=== PATIENT | female | born 1990 | race Caucasian/White ===

== ENCOUNTER 2016-09-07 22:15 | Emergency (ER) | payer MEDICAID ==
[~2016-09-07] VITALS: Ht 165.1 cm; Wt 80.0 kg
[~2016-09-07 22:15] MED LIST: DOXY100C PO; NEOM0.1S4 EACH EYE; OXYC15TA PO; ZANA4CAP PO
[2016-09-07 22:17] VITALS: BP 126/90; PULSE 104; RESP 14; TEMP 98.3; O2SAT 100
[2016-09-07 22:30] VITALS: O2SAT 100
[2016-09-07] MEDS ORDERED: SODIUM CHLOR 0.9% 1000 ML INJ 1,000 ML IV ONE (23:30)
[2016-09-07] MEDS ORDERED: CLINDAMYCIN INJ 900 MG in SODIUM CHLORIDE 0.9% INJ 100 ML IV ONE (23:30)
[2016-09-07] MEDS ORDERED: KETOROLAC TROMETHAMINE 30 MG/ML (IVP) VIAL IV PUSH ONE (23:30)
[2016-09-07 23:50] LABS: AUTOMATED NEUTROPHIL # 3.2 TH/MM3 (1.8-7.7); BASOPHIL # 0.1 TH/MM3 (0-0.2); EOSINOPHIL # 0.3 TH/MM3 (0-0.4); EOSINOPHIL % 6.9 % (0.0-4.0); HEMATOCRIT 40.8 % (35.0-46.0); HEMO FLAGS DIFF FINAL; LYMPH % 18.3 % (9.0-44.0); LYMPHOCYTE # 0.9 TH/MM3 (1.0-4.8); MEAN CORPUSCULAR HEMOGLOBIN 26.4 PG (27.0-34.0); MONO % 10.5 % (0.0-8.0); NEUT % 63.3 % (16.0-70.0); PLATELET COUNT 151 TH/MM3 (150-450); RED BLOOD COUNT 5.11 MIL/MM3 (4.00-5.30); RED CELL DISTRIBUTION WIDTH 12.3 % (11.6-17.2)
[2016-09-07 23:57] LABS: POTASSIUM 4.2 MEQ/L (3.5-5.1)
[2016-09-08 00:01] LABS: BICARBONATE 28.9 MEQ/L (21.0-32.0)
[2016-09-08 00:03] LABS: BARBITURATES, URINE NEG (NEG); COCAINE, URINE POS (NEG)
[2016-09-08 00:04] LABS: AMPHETAMINE, URINE NEG (NEG)
[2016-09-08 00:37] VITALS: BP 122/84; PULSE 96; RESP 16; O2SAT 100
[2016-09-08] MEDS ORDERED: CLIN1CAP5 PO (01:09)
[2016-09-08] MEDS ORDERED: BACT800T5 PO (01:09)
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
[2016-09-08] MEDS ORDERED: SULFAMETHOXAZOLE-TRIMETHOPRIM DS 800-160 MG TAB PO ONE (01:15)
[2016-09-08 01:41] VITALS: BP 118/78; PULSE 78; RESP 18; O2SAT 100
== END 2016-09-08 01:43 | disposition home or self-care (01) ==
LOC: PHED 22:15
DX: L03.113 Cellulitis of right upper limb (principal); B95.61 Methicillin susceptible Staphylococcus aureus infection as the cause of diseases classified elsewhere; F19.10 Other psychoactive substance abuse, uncomplicated
CPT/HCPCS: 80048; 80307; 84703; 85025; 86403; 87040; 87070; 87186; 87205; 96365; 96375; 99284; J1885; J7030

== ENCOUNTER 2016-12-29 19:24 | Emergency (ER) | payer SELFPAY ==
[~2016-12-29] VITALS: Ht 165.1 cm; Wt 80.0 kg
[~2016-12-29 19:24] MED LIST changes: +BACT800T5 PO; +CLIN150C14 PO; -DOXY100C PO; -NEOM0.1S4 EACH EYE
[2016-12-29 19:26] VITALS: BP 111/77; PULSE 99; RESP 16; TEMP 98.7; O2SAT 97
[2016-12-29] MEDS ORDERED: SODIUM CHLOR 0.9% 1000 ML INJ 1,000 ML IV SCH (19:54)
[2016-12-29] MEDS ORDERED: SODIUM CHLORIDE 0.9% FLUSH 10 ML FLUSH IVF PRN (20:00)
[2016-12-29] MEDS ORDERED: VANCOMYCIN INJ 1,000 MG in SODIUM CHLOR 0.9% 250 ML INJ 250 ML IV ONE (20:00)
[2016-12-29] MEDS ORDERED: TETANUS/DIPHTHERIA TOXOID ADULT 0.5 ML VIAL IM ONE (20:15)
--- NOTE | 2016-12-29 20:15 | PD ---
HPI Chief Complaint: Skin Problem Time Seen by Provider: 19:50 Travel History International Travel<30 days: No Contact w/Intl Traveler<30days: No Traveled to known affect area: No History of Present Illness HPI Patient is a 26-year-old female who is an IV drug abuser, presents to emergency room for evaluation of right antecubital abscess. Patient reports that she last used IV heroin a few days ago, reports that over the past few days, she has had increased swelling and pain to her right AC. Reports concern for abscess. Patient reports that she has been having fever/chills. Reports that tetanus is not up to date. PFSH Past Medical History Medical History: Denies Significant Hx Diminished Hearing: No Immunizations Current: Yes ?: Not LMP: 12/11/16 : 2 Para: 2 Dilation and Curettage (D&C): Yes Past Surgical History Oral Surgery: Yes (WISDOM TEETH REMOVED) Other Surgery: Yes Social History Alcohol Use: No Tobacco Use: No Substance Use: Yes (iv drug use HEROIN LAST USED OVER TWO WEEKS AGO) Allergies-Medications (Allergen,Severity, Reaction): Coded Allergies: Influenza Virus Vaccines (Unverified Allergy, Severe, Anaphylaxis, 12/29/16 ) ciprofloxacin (Unverified Allergy, Intermediate, RASH, 12/29/16) Reported Meds & Prescriptions Reported Meds & Active Scripts Active Clindamycin (Clindamycin HCl) 150 Mg Cap 300 Mg PO Q6H 7 Days Bactrim DS (Sulfamethoxazole-Trimethoprim) 800-160 Mg Tab 1 Tab PO BID Reported Oxycodone (Oxycodone HCl) 15 Mg Tab 15 Mg PO Q6H PRN Zanaflex (Tizanidine HCl) 4 Mg Cap 4 Mg PO TID Review of Systems Except as stated in HPI: all other systems reviewed are Neg General / Constitutional: Positive: Fever, Chills Eyes: No: Visual changes HENT: No: Headaches Cardiovascular: No: Chest Pain or Discomfort Respiratory: No: Shortness of Breath Gastrointestinal: No: Abdominal Pain Genitourinary: No: Dysuria Musculoskeletal: Positive: Edema, Pain (edema and pain to right AC) Skin: No Rash Neurologic: No: Weakness Psychiatric: No: Depression Endocrine: No: Polydipsia Hematologic/Lymphatic: No: Easy Bruising Physical Exam Narrative GENERAL: mild distress SKIN: Focused skin assessment warm/dry. HEAD: Atraumatic. Normocephalic. EYES: Pupils equal and round. No scleral icterus. No injection or drainage. ENT: No nasal bleeding or discharge. Mucous membranes pink and moist. NECK: Trachea midline. No JVD. CARDIOVASCULAR: Regular rate and rhythm. No murmur appreciated. RESPIRATORY: No accessory muscle use. Clear to auscultation. Breath sounds equal bilaterally. GASTROINTESTINAL: Abdomen soft, non-tender, nondistended. Hepatic and splenic margins not palpable. MUSCULOSKELETAL: No obvious deformities. No clubbing. No cyanosis. Patient with 3dat3ee abscess to right AC, pulses intact, neurovascularly intact. NEUROLOGICAL: Awake and alert. No obvious cranial nerve deficits. Motor grossly within normal limits. Normal speech. PSYCHIATRIC: Appropriate mood and affect; insight and judgment normal. Data Data Last Documented VS Vital Signs Date Time Temp Pulse Resp B/P (MAP) Pulse Ox O2 Delivery O2 Flow Rate FiO2 12/29/16 23:06 99 Room Air 12/29/16 19:26 98.7 99 16 Orders Orders Basic Metabolic Panel (Bmp) (12/29/16 19:54) Complete Blood Count With Diff (12/29/16 19:54) Blood Culture (12/29/16 19:54) Ecg Monitoring (12/29/16 19:54) Iv Access Insert/Monitor (12/29/16 19:54) Oximetry (12/29/16 19:54) Sodium Chlor 0.9% 1000 Ml Inj (Ns 1000 M (12/29/16 19:54) Sodium Chloride 0.9% Flush (Ns Flush) (12/29/16 20:00) Vancomycin Inj (Vancomycin Inj) (12/29/16 20:00) Ed Urine Pregnancytest Poc (12/29/16 19:54) Drug Screen, Random Urine (12/29/16 19:54) Elbow, Limited (Ap&Lat) (12/29/16 ) Us Arm Soft Tissue (12/29/16 ) Tetanus/Diphtheria Tox Adult (Tetanus/Di (12/29/16 20:15) Prothrombin Time / Inr (Pt) (12/29/16 21:22) Act Partial Throm Time (Ptt) (12/29/16 21:22) Labs Laboratory Tests Test 12/29/16 20:30 12/29/16 22:37 12/29/16 22:55 White Blood Count 6.7 TH/MM3 Red Blood Count 5.23 MIL/MM3 Hemoglobin 13.9 GM/DL Hematocrit 41.7 % Mean Corpuscular Volume 79.8 FL Mean Corpuscular Hemoglobin 26.6 PG Mean Corpuscular Hemoglobin Concent 33.4 % Red Cell Distribution Width 16.3 % Platelet Count 189 TH/MM3 Mean Platelet Volume 9.6 FL Neutrophils (%) (Auto) 42.3 % Lymphocytes (%) (Auto) 49.3 % Monocytes (%) (Auto) 7.6 % Eosinophils (%) (Auto) 0.3 % Basophils (%) (Auto) 0.5 % Neutrophils # (Auto) 2.8 TH/MM3 Lymphocytes # (Auto) 3.3 TH/MM3 Monocytes # (Auto) 0.5 TH/MM3 Eosinophils # (Auto) 0.0 TH/MM3 Basophils # (Auto) 0.0 TH/MM3 CBC Comment AUTO DIFF Differential Comment AUTO DIFF CONFIRMED Toxic Granulation 1+ Platelet Estimate LOW Platelet Morphology Comment NORMAL Red Cell Morphology Comment NORMAL Blood Urea Nitrogen 11 MG/DL Creatinine 1.21 MG/DL Random Glucose 90 MG/DL Calcium Level 8.7 MG/DL Sodium Level 136 MEQ/L Potassium Level 4.7 MEQ/L Chloride Level 103 MEQ/L Carbon Dioxide Level 26.6 MEQ/L Anion Gap 6 MEQ/L Estimat Glomerular Filtration Rate 53 ML/MIN MDM Medical Decision Making Medical Screen Exam Complete: Yes Emergency Medical Condition: Yes Medical Record Reviewed: Yes Interpretation(s) Vital Signs Date Time Temp Pulse Resp B/P (MAP) Pulse Ox O2 Delivery O2 Flow Rate FiO2 12/29/16 19:26 98.7 99 16 111/77 (88) 97 Room Air Differential Diagnosis Abscess versus hematoma Narrative Course During the course of the patients emergency department visit, the patients history, examination, and differential diagnosis were reviewed with the patient. The patient was placed on a tripe scraper with oximetry and frequent blood pressure monitoring. The patient had 20 gauge IV access obtained and blood work sent for analysis. The patient was initially provided IV Vancomycin as well as tetanus update The patients laboratory studies were reviewed and remarkable for CBC & BMP Diagram 12/29/16 20:30 Calcium Level 8.7 Radiology studies were reviewed and remarkable for Last Impressions Upper Extremity Ultrasound 12/29/16 0000 Signed Impressions: Service Date/Time: December 20:57 - CONCLUSION: Complex hypoechoic mass which could represent an abscess or hematoma. Onel Hector MD Elbow X-Ray 12/29/16 0000 Signed Impressions: Service Date/Time: December 20:12 - CONCLUSION: Negative limited 2 view exam. Onel Hector MD Patient with abscess versus hematoma to her right antecubital region. Patient received IV vanco while in the ER. I discussed with patient need for admission to the hospital for IV antibiotics. Patient refuses admission to the hospital and would like to first try oral antibiotics as well as warm compresses to the area. Patient reports "I have to be somewhere in the morning, I cant stay." Signs and symptoms of when to return to the ER was reviewed with patient in detail. Diagnosis Primary Impression: Abscess of arm, right Patient Instructions: General Instructions Additional Instructions: Please provide patient with a copy of their lab work and studies at discharge* * Please follow up with your primary care doctor in 1-2 days Return to the ER if symptoms worsen or progress Return to the ER as needed Please return to ER in 48 hours for wound check Please follow up with all cultures from today STOP USING IV DRUGS! Med/Other Pt SpecificInfo: Prescription(s) given Scripts Sulfamethoxazole-Trimethoprim (Bactrim DS) 800-160 Mg Tab 1 TAB PO BID for Infection for 10 Days, #20 TAB 0 Refills Prov: Nicole Fish DO 12/29/16 Cephalexin (Keflex) 500 Mg Cap 500 MG PO Q6H for Infection for 10 Days, #40 CAP 0 Refills Prov: Nicole Fish DO 12/29/16 Disposition: 01 DISCHARGE HOME Condition: Stable Nicole Fish DO Dec 29, 2016 20:15
--- NOTE | 2016-12-29 20:36 | RADRPT ---
EXAM DATE/TIME: 12/29/2016 20:12 [facility] COMPARISON: No previous studies available for comparison. INDICATIONS : Right elbow abscess. MEDICAL HISTORY : None. SURGICAL HISTORY : None. ENCOUNTER: Initial ACUITY: 1 day PAIN SCORE: 10/10 LOCATION: Right elbow. FINDINGS: Two view examination of the right elbow demonstrates no soft tissue swelling, joint effusion, fractur e or dislocation. Bony mineralization is normal. CONCLUSION: Negative limited 2 view exam. Onel Hector MD on December 29, 2016 at 20:34 Board Certified Radiologist. This report was verified electronically.
[2016-12-29 20:48] LABS: AUTOMATED NEUTROPHIL # 2.8 TH/MM3 (1.8-7.7); BASOPHIL % 0.5 % (0.0-2.0); EOSINOPHIL % 0.3 % (0.0-4.0); HEMATOCRIT 41.7 % (35.0-46.0); LYMPH % 49.3 % (9.0-44.0); LYMPHOCYTE # 3.3 TH/MM3 (1.0-4.8); MEAN CELL VOLUME 79.8 FL (80.0-100.0); MEAN CORPUSCULAR HEMOGLOBIN 26.6 PG (27.0-34.0); MEAN CORPUSCULAR HGB CONC 33.4 % (32.0-36.0); MONO % 7.6 % (0.0-8.0); NEUT % 42.3 % (16.0-70.0); PLATELET COUNT 189 TH/MM3 (150-450); RED BLOOD COUNT 5.23 MIL/MM3 (4.00-5.30); RED CELL DISTRIBUTION WIDTH 16.3 % (11.6-17.2); WHITE BLOOD COUNT 6.7 TH/MM3 (4.0-11.0)
[2016-12-29 20:52] LABS: HEMO FLAGS AUTO DIFF
[2016-12-29 21:08] LABS: BICARBONATE 26.6 MEQ/L (21.0-32.0); POTASSIUM 4.7 MEQ/L (3.5-5.1)
--- NOTE | 2016-12-29 21:18 | RADRPT ---
EXAM DATE/TIME: 12/29/2016 20:57 1[facility] COMPARISON: No previous studies available for comparison. INDICATIONS : Right arm abscess. MEDICAL HISTORY : Substance use. IV drug abuse. Right arm abscess. SURGICAL HISTORY : [place] teeth removed. Dilation and curettage. ENCOUNTER: Initial ACUITY: 2 weeks PAIN SCORE: 9/10 LOCATION: Right arm. AREA EVALUATED: Right antecubital fossa. FINDINGS: A targeted ultrasound study was performed and demonstrated a complex hypoechoic heterogeneous masslik e area in the right antecubital fossa measuring up to 5.3 x 1.5 x 5.4 cm. This has hypoechoic and ane choic areas is poorly defined. This demonstrates surrounding increased color flow. CONCLUSION: Complex hypoechoic mass which could represent an abscess or hematoma. Onel Hector MD on December 29, 2016 at 21:15 Board Certified Radiologist. This report was verified electronically.
[2016-12-29 21:21] LABS: PLATELET ESTIMATE SMEAR LOW (NORMAL); PLATELET MORPHOLOGY NORMAL (NORMAL); SCAN/DIFF AUTO DIFF CONFIRMED; TOXIC GRANULATION 1+ (NORMAL)
[2016-12-29 23:06] VITALS: O2SAT 99
[2016-12-29 23:09] VITALS: BP 103/70; PULSE 89; RESP 16
[2016-12-29] MEDS ORDERED: BACT800T5 PO (23:20)
[2016-12-29] MEDS ORDERED: CEPH-460 PO (23:20)
[2016-12-29 23:30] LABS: APTT (PATIENT) 29.1 SEC (24.3-30.1); PROTHROMBIN TIME - PATIENT 11.1 SEC (9.8-11.6)
== END 2016-12-29 23:33 | disposition home or self-care (01) ==
LOC: NEPD 19:24
DX: L02.413 Cutaneous abscess of right upper limb (principal); R50.9 Fever, unspecified; Z23 Encounter for immunization; Z79.899 Other long term (current) drug therapy
CPT/HCPCS: 73070; 76882; 80048; 80307; 84703; 85025; 85610; 85730; 87040; 90471; 90714; 96374; 99285; J3370; J7030; J7050